=== PATIENT | female | born 1985 | race Caucasian/White ===

== ENCOUNTER → 2016-05-28 | Outpatient (CLI) | payer OTHER ==
[~2016-05-28] MED LIST: ALBU18002 INH; ALBU4TAB10 PO; ATV5X PO; CEPH500C2 PO; CLR10 PO; FEXO1TAB46 PO; FLUO20CA35 PO; FLUO20CA36 PO; FLUT0.15; GABA-112 PO; IBUP-1427 PO; IPRA1AER2 INH; MTR600X PO; MULTTAB58 PO; OXYC-57 PO; PRENTAB26 PO; RANI150T3 PO; SYMIN160 INH; VNTHFA/IN INH; ZOLP10TA6 PO
[2016-05-28 11:39] LABS: GTGD 50 Grams
[2016-05-31 14:53] LABS: AFP CONCENTRATION 32.5 NG/ML; AFP MULTIPLE OF MEDIAN 1.18; AFPTS GESTATIONAL AGE 16.7 WEEKS; AFPTS INSULIN DEP DIABETIC? NO; AFPTS MATERNAL WT 208 LBS; ALPHA-FETOPROTEIN RACE HISPANIC=H; ESTRIOL MULTIPLE OF MEDIAN 1.09; HISTORY OF NTD NO; INHIBIN A 126 PG/ML; INHIBIN A MOM 0.91; REPEAT SAMPLE? NO; hCG MULTIPLE OF MEDIAN 1.25
== END | disposition home or self-care (01) ==
LOC: C.LAB1850 09:29
PROVIDERS: ATTEND Obstetrics & Gynecology
DX: Z34.02 Encounter for supervision of normal first pregnancy, second trimester (principal)

== ENCOUNTER → 2016-06-22 | Outpatient (CLI) | payer OTHER | END | disposition home or self-care (01) | LOC: C.LAB1850 08:59 | PROVIDERS: ATTEND Obstetrics & Gynecology | DX: R89.9 Unspecified abnormal finding in specimens from other organs, systems and tissues (principal) ==

== ENCOUNTER 2016-06-24 13:41 | Emergency (ER) | payer OTHER ==
[~2016-06-24 13:41] MED LIST changes: -ALBU18002 INH; -ALBU4TAB10 PO; -CEPH500C2 PO; -CLR10 PO; -FLUO20CA36 PO; -FLUT0.15; -IBUP-1427 PO; -IPRA1AER2 INH; -MTR600X PO; -MULTTAB58 PO; -OXYC-57 PO; -PRENTAB26 PO; -RANI150T3 PO; -SYMIN160 INH; -VNTHFA/IN INH
[2016-06-24] MEDS ORDERED: IPRA1AER2 INH (13:43)
[2016-06-24 13:49] VITALS: TEMP 36.7; Ht 160 cm
[2016-06-24 14:30] VITALS: O2SAT 97
--- NOTE | 2016-06-24 15:02 | EMERGENCY ROOM VISIT NOTE ---
History Report prepared by Casie: Niels Vance Under the Supervision of: Dr. Nikolay Wyatt M.D. First contact with patient: 14:40 Chief Complaint: CHEST PAIN Stated Complaint: CHEST PAIN,SOB,CLAMMY HANDS,HEAVINESS IN PELVIS History of Present Illness The patient is a 30 year old female who presents to the Emergency Room with complaints of intermittent left sided chest pain that began shortly prior to arrival. The patient describes her pain as "sharp" and rates the pain as a 6/10 in severity. When her chest pain occurs it lasts only a few seconds before spontaneously resolving. The patient also complains of shortness of breath, diaphoresis, and nausea. She does have a history of asthma and has been having some increased difficulty breathing the past week. She does have a rescue inhaler and daily maintenance medication. She also has a history of anxiety and depression and is on medication for these conditions. The patient is currently 21 weeks and notes experiencing some pressure and "heaviness" in her lower abdomen. She has not had any vaginal bleeding or urinary irregularities. The patient denies any personal/significant family history of blood clots, and has not noticed any swelling in her lower extremities. There has been no recent travel. Source of History: patient Onset: Shortly [employer] Position: chest (left) Symptom Intensity: Quality: sharp Associated Symptoms: + SOB, + diaphoresis, + nausea, No urinary symptoms Review of Systems See HPI for pertinent positives & negatives. A total of 10 systems reviewed and were otherwise negative. Past Medical & Surgical Medical Problems: (1) Asthma (2) Depression (3) ANA (generalized anxiety disorder) Family History Cancer Diabetes mellitus Hypertension Social History Smoking Status: Never Smoker Alcohol Use: none Drug Use: none Marital Status: Housing Status: lives with significant other Occupation Status: [employer] student Current/Historical Medications Scheduled Budesonide/Formoterol Fumarate (Symbicort 160/4.5 Inhaler), 1 PUFF INH BID Fluoxetine HCl (Fluoxetine HCl), 60 MG PO DAILY Multiple Vitamin (Multivitamin), 1 TAB PO DAILY Scheduled PRN Ipratropium-Albuterol (Combivent Respimat), 1 PUFF INH QID PRN for Shortness of Breath Allergies Coded Allergies: No Known Allergies (Unverified , 03/04/16) Physical Exam Vital Signs Date Time Temp Pulse Resp B/P Pulse Ox O2 Delivery O2 Flow Rate FiO2 2/12/17 16:47 73 16 116/57 96 06/24/16 14:44 76 06/24/16 14:30 97 Room Air 06/24/16 13:53 98 Room Air 06/24/16 13:49 36.7 82 20 140/62 98 Room Air Physical Exam GENERAL: Patient is in no acute distress. HEENT: No acute trauma, normocephalic atraumatic, mucous membranes moist, no nasal congestion, no scleral icterus. NECK: No stridor, no adenopathy, no meningismus, trachea is midline. LUNGS: Clear to auscultation bilaterally, no wheeze, no rhonchi, breath sounds equal. HEART: Without murmurs gallops or rubs, regular rate and rhythm. CHEST: Non-tender chest wall. ABDOMEN: Gravid uterus. Soft, nontender, bowel sounds positive, no hernias, no peritonitis. EXTREMITIES: No cyanosis or edema, full range of motion of all the joints without pain or difficulty, no signs for acute trauma. NEUROLOGIC: Oriented x 3, no acute motor or sensory deficits, no focal weakness. SKIN: No rash, no jaundice, no diaphoresis. Medical Decision & Procedures ER Provider Diagnostic Interpretation: X ray results and stated below per my interpretation and radiologist interpretation. Other radiology results and stated below per my review and radiologist interpretation: BILATERAL LOWER EXTREMITY VENOUS DOPPLER CLINICAL HISTORY: . Possible clot. Shortness of breath. Chest pain. COMPARISON STUDY: No previous studies for comparison. TECHNIQUE: Sonography of the deep venous system of the bilateral lower extremities was performed. Compression and augmentation were evaluated. FINDINGS: The bilateral common femoral, superficial femoral and popliteal veins were compressible. Augmentation was normal. Flow was shown within the deep calf vessels. IMPRESSION: No evidence of deep venous thrombus within the bilateral lower extremities. Electronically signed by: Pelon Aragon M.D. 06/24/2016 4:18 PM Dictated Date/Time: 06/24/2016 4:18 PM HEART RATE: heart rate was found at 147. URINE DIP: Urine dip shows ketones consistent with dehydration, no infection present. ECG Indication: chest pain Rate (beats per minute): 80 Rhythm: normal sinus Findings: no acute ischemic change, no ectopy ED Course 1444: The patient was evaluated in room C12. A complete history and physical exam was performed. 1629: I reevaluated the patient at this time. I discussed results and discharge instructions.The patient feels much better after the heart rate was found : She verbalized understanding and agreement. The patient is ready for discharge. Medical Decision Differential diagnosis include: musculoskeletal chest pain, aortic dissection, pulmonary embolism, pneumothorax, pneumonia, anxiety. The patient presents with some fleeting, intermittent left-sided chest pain. She is about 21 weeks . EKG shows a normal sinus rhythm, no ischemia. Bilateral lower extremity ultrasound does not show evidence for DVT. The patient has not had any long trip by car or by plane, there has been no leg edema, she has no family history of DVT. The patient has strong heart tones by exam. Urine dip does not show infection. The patient was reassured. She is not currently short of breath, she is not tachycardic. She is not hypoxic. I suspect the pain is musculoskeletal. The patient can return to this ER for worsening symptoms. I do not think further workup in the emergency room is required today. Impression Primary Impression: Left sided chest pain Additional Impression: Scribe Attestation The scribe's documentation has been prepared under my direction and personally reviewed by me in its entirety. I confirm that the note above accurately reflects all work, treatment, procedures, and medical decision making performed by me. Departure Information Dispostion Home / Self-Care Referrals Alex Cohen D.O. (PCP) Forms HOME CARE DOCUMENTATION FORM, IMPORTANT VISIT INFORMATION Patient Instructions My [facility] Additional Instructions testing was all ok today return for worsening symptoms as we discussed may use tylenol for pain as needed Problem Qualifiers Additional Impression: Weeks of gestation: 21 weeks Qualified Codes: Z3A.21 - 21 weeks gestation of
[2016-06-24] MEDS ORDERED: FLUO20CA36 PO (15:07)
[2016-06-24] MEDS ORDERED: SYMIN160 INH (15:54)
--- NOTE | 2016-06-24 16:20 | DIAGNOSTIC IMAGING REPORT ---
BILATERAL LOWER EXTREMITY VENOUS DOPPLER CLINICAL HISTORY: . Possible clot. Shortness of breath. Chest pain. COMPARISON STUDY: No previous studies for comparison. TECHNIQUE: Sonography of the deep venous system of the bilateral lower extremities was performed. Compression and augmentation were evaluated. FINDINGS: The bilateral common femoral, superficial femoral and popliteal veins were compressible. Augmentation was normal. Flow was shown within the deep calf vessels. IMPRESSION: No evidence of deep venous thrombus within the bilateral lower extremities. Electronically signed by: Pelon Aragon M.D. 06/24/2016 4:18 PM Dictated Date/Time: 06/24/2016 4:18 PM
[2016-06-24 16:47] VITALS: BP 116/57; PULSE 73; O2SAT 96
[2016-06-24] MEDS ORDERED: MULTTAB58 PO (17:35)
== END 2016-06-24 16:49 | disposition home or self-care (01) ==
LOC: C.EDB 13:43 → C.EDC 16:49
DX: O99.89 Other specified diseases and conditions complicating pregnancy, childbirth and the puerperium (principal); O99.341 Other mental disorders complicating pregnancy, first trimester; R07.9 Chest pain, unspecified; Z3A.21 21 weeks gestation of pregnancy; J45.909 Unspecified asthma, uncomplicated; F32.9 Major depressive disorder, single episode, unspecified; Z80.9 Family history of malignant neoplasm, unspecified; Z83.3 Family history of diabetes mellitus; Z82.49 Family history of ischemic heart disease and other diseases of the circulatory system

== ENCOUNTER → 2016-06-26 | Outpatient (CLI) | payer OTHER ==
[~2016-06-26] MED LIST changes: +ALBU18002 INH; +ALBU4TAB10 PO; -ATV5X PO; +CEPH500C2 PO; +CLR10 PO; -FEXO1TAB46 PO; -FLUO20CA35 PO; +FLUO20CA36 PO; +FLUT0.15; -GABA-112 PO; +IBUP-1427 PO; +IPRA1AER2 INH; +MTR600X PO; +MULTTAB58 PO; +OXYC-57 PO; +PRENTAB26 PO; +RANI150T3 PO; +SYMIN160 INH; +VNTHFA/IN INH; -ZOLP10TA6 PO
[2016-06-26 17:04] LABS: URINE APPEARANCE CLEAR (CLEAR); URINE BILIRUBIN NEG (NEG); URINE COLOR YELLOW; URINE EPITHELIAL CELL AUTO >30 /lpf (0-5); URINE NITRITE NEG (NEG); URINE PH 6.5 (4.5-7.5); URINE SPECIFIC GRAVITY 1.005 (1.000-1.030); UROBILINOGEN NEG (NEG)
[2016-06-26 17:05] LABS: MANUAL MICROSCOPIC REQUIRED? NO; REVIEW REQ? NO
== END | disposition home or self-care (01) ==
LOC: C.LAB1850 15:05
PROVIDERS: ATTEND Obstetrics & Gynecology
DX: R34 Anuria and oliguria (principal)

== ENCOUNTER → 2016-08-17 | Outpatient (CLI) | payer OTHER ==
[2016-08-17 14:42] LABS: URINE APPEARANCE CLEAR (CLEAR); URINE COLOR DK YELLOW; URINE EPITHELIAL CELL AUTO >30 /lpf (0-5); URINE NITRITE NEG (NEG); URINE PH 6.5 (4.5-7.5); UROBILINOGEN NEG (NEG)
[2016-08-17 14:54] LABS: MANUAL MICROSCOPIC REQUIRED? NO; REVIEW REQ? YES
[2016-08-17 14:56] LABS: URINE BILIRUBIN NEG (NEG)
[2016-08-17 15:39] LABS: URINE MUCUS PRESENT (NONE PRSENT)
== END | disposition home or self-care (01) ==
LOC: C.LAB1850 09:51
PROVIDERS: ATTEND Obstetrics & Gynecology
DX: Z34.03 Encounter for supervision of normal first pregnancy, third trimester (principal); R89.9 Unspecified abnormal finding in specimens from other organs, systems and tissues

== ENCOUNTER → 2016-08-31 | Outpatient (CLI) | payer OTHER ==
[2016-08-31 17:43] LABS: HEMATOCRIT 36.9 % (37-47)
== END | disposition home or self-care (01) ==
LOC: C.LAB1850 16:10
PROVIDERS: ATTEND Obstetrics & Gynecology
DX: Z34.03 Encounter for supervision of normal first pregnancy, third trimester (principal)

== ENCOUNTER → 2016-10-10 | Outpatient (CLI) | payer OTHER | END | disposition home or self-care (01) | LOC: C.LABSPEC 17:49 | PROVIDERS: ATTEND Obstetrics & Gynecology | DX: O24.410 Gestational diabetes mellitus in pregnancy, diet controlled (principal) ==

== ENCOUNTER 2016-11-07 16:22 | Outpatient (CLI) | payer OTHER ==
[~2016-11-07] VITALS: Ht 160 cm; Wt 94.8 kg
[~2016-11-07 16:22] MED LIST changes: -ALBU18002 INH; -ALBU4TAB10 PO; -CEPH500C2 PO; -CLR10 PO; -FLUT0.15; -IBUP-1427 PO; -MTR600X PO; -OXYC-57 PO; -PRENTAB26 PO; -RANI150T3 PO; -VNTHFA/IN INH
[2016-11-07 17:39] VITALS: Ht 160 cm; Wt 94.8 kg
[2016-11-07 17:44] LABS: URINE APPEARANCE CLEAR (CLEAR); URINE BILIRUBIN NEG (NEG); URINE COLOR YELLOW; URINE NITRITE NEG (NEG); UROBILINOGEN NEG (NEG); ZZUR CULT IF INDIC CLEAN CATCH NO
[2016-11-07 17:49] LABS: MANUAL MICROSCOPIC REQUIRED? NO; REVIEW REQ? NO
[2016-11-07] MEDS ORDERED: ALBU4TAB10 PO (19:08)
[2016-11-07] MEDS ORDERED: CLR10 PO (19:08)
[2016-11-07] MEDS ORDERED: FLUT0.15 (19:08)
[2016-11-07] MEDS ORDERED: RANI150T3 PO (19:08)
== END 2016-11-07 18:45 | disposition home or self-care (01) ==
LOC: C.OPB 16:22 → C.LD 16:22 → C.OPB 18:45
PROVIDERS: ATTEND Obstetrics & Gynecology
DX: O12.13 Gestational proteinuria, third trimester (principal); Z3A.40 40 weeks gestation of pregnancy

== ENCOUNTER 2016-11-09 10:05 | Outpatient (CLI) | payer OTHER ==
[~2016-11-09] VITALS: Ht 160 cm; Wt 95.5 kg
[~2016-11-09 10:05] MED LIST changes: +ALBU4TAB10 PO; +CLR10 PO; +FLUT0.15; -IPRA1AER2 INH; +RANI150T3 PO
[2016-11-09] MEDS ORDERED: PRENTAB26 PO (10:28)
[2016-11-09 10:33] LABS: BASO % 0.2 %; BASO ABS # 0.02 K/uL (0-0.2); EOS % 0.7 %; HEMATOCRIT 39.7 % (37-47); IG% 0.3 %; LYMPH % 19.1 %; LYMPH ABS # 1.79 K/uL (1.2-3.4); MEAN CELL VOLUME 86.9 fL (80-100); MEAN CORPUSCULAR HEMOGLOBIN 29.8 pg (25-34); MEAN PLATELET VOLUME 10.5 fL (7.4-10.4); MONO % 7.4 %; NEUT % 72.3 %; PLATELET COUNT 231 K/uL (130-400); RED BLOOD COUNT 4.57 M/uL (4.2-5.4); WHITE BLOOD COUNT 9.36 K/uL (4.8-10.8)
[2016-11-09] MEDS ORDERED: ALBU18002 INH (10:33)
[2016-11-09 10:40] VITALS: Ht 160 cm; Wt 95.5 kg
[2016-11-09 10:41] LABS: COMPLETE YES; MEAN CORPUSCULAR HGB CONC 34.3 g/dl (32-36)
[2016-11-09 10:42] LABS: INR 0.9 (0.9-1.1); PARTIAL THROMBOPLASTIN RATIO 1.1; PROTHROMBIN TIME (PATIENT) 9.7 SECONDS (9.0-12.0)
[2016-11-09] MEDS ORDERED: VNTHFA/IN INH (11:05)
[2016-11-09 11:11] LABS: ALKALINE PHOSPHATASE 173 U/L (45-117); ALT/SGPT 19 U/L (12-78); AST/SGOT 17 U/L (15-37); CREATININE 0.56 mg/dl (0.60-1.20); URIC ACID 4.9 mg/dl (2.6-7.2)
== END 2016-11-09 13:45 | disposition home or self-care (01) ==
LOC: C.LD 10:05 → C.OPB 10:05
PROVIDERS: ATTEND Obstetrics & Gynecology
DX: O99.89 Other specified diseases and conditions complicating pregnancy, childbirth and the puerperium (principal); R03.0 Elevated blood-pressure reading, without diagnosis of hypertension

== ENCOUNTER 2016-11-10 07:46 | Inpatient (IN) | payer OTHER ==
[~2016-11-10] VITALS: Ht 160 cm; Wt 95.0 kg
[~2016-11-10 07:46] MED LIST changes: -ALBU4TAB10 PO; -MULTTAB58 PO; +PRENTAB26 PO; +VNTHFA/IN INH
[2016-11-10 08:32] VITALS: Ht 160 cm; Wt 95.0 kg
[2016-11-10] MEDS ORDERED: LACTATED RINGER'S 1000ML 1,000 ML IV SCH ×2 (08:37→23:38)
[2016-11-10] MEDS ORDERED: LACTATED RINGER'S 1000ML 1,000 ML IV PRN (08:37)
[2016-11-10] MEDS ORDERED: MISOPROSTOL 25 MCG TAB PV ONE (08:45)
[2016-11-10 09:08] LABS: HEMATOCRIT 38.9 % (37-47); MEAN CORPUSCULAR HGB CONC 34.4 g/dl (32-36); MEAN PLATELET VOLUME 10.2 fL (7.4-10.4); PLATELET COUNT 220 K/uL (130-400); RED BLOOD COUNT 4.47 M/uL (4.2-5.4); WHITE BLOOD COUNT 9.53 K/uL (4.8-10.8)
[2016-11-10] MEDS ORDERED: LACTATED RINGER'S 1000ML 500 ML IV PRN ×2 (10:48→18:36)
[2016-11-10] MEDS ORDERED: OXYTOCIN 30 UNITS/500ML NSS IV PRN (11:00)
[2016-11-10] MEDS ORDERED: RANITIDINE HCL 150 MG TAB PO ONE (13:45)
[2016-11-10] MEDS ORDERED: EpHEDrine SULFATE INJ 50 MG/ML AMP ONE ×2 (17:41→22:43)
[2016-11-10] MEDS ORDERED: BUPIVACAINE 0.25% 30 ML VIAL ONE (17:41)
[2016-11-10] MEDS ORDERED: FENTANYL CITRATE INJ 50 MCG/1 ML 2 ML VIAL ONE ×2 (17:41→22:06)
[2016-11-10] MEDS ORDERED: FENTANYL 2MCG/ML ROPIV 1.25MG/ML 100ML BAG EPI ONE (17:41)
[2016-11-10] MEDS ORDERED: NALOXONE HCL INJ 1 MG in SODIUM CHLORIDE 0.9% 1000ML 1,000 ML IV PRN ×4 (18:36)
[2016-11-10] MEDS ORDERED: ONDANSETRON INJ 2 MG/ML 2 ML VIAL IV PRN ×2 (18:45→23:45)
[2016-11-10] MEDS ORDERED: EpHEDrine SULFATE INJ 50 MG/ML AMP IV PRN (18:45)
[2016-11-10] MEDS ORDERED: DiphenhydrAMINE HCL 50 MG/ML VIAL IV PRN (18:45)
[2016-11-10] MEDS ORDERED: PROMETHAZINE HCL INJ 25 MG in SODIUM CHLORIDE 0.9% 50ML 50 ML IV PRN (18:45)
[2016-11-10] MEDS ORDERED: NALOXONE HCL INJ 0.4 MG/1 ML VIAL/CARP IV PRN (18:45)
[2016-11-10] MEDS ORDERED: NALBUPHINE HCL INJ 10 MG/ML AMP IV PRN (18:45)
[2016-11-10] MEDS ORDERED: FENTANYL 2MCG/ML ROPIV 1.25MG/ML 100ML BAG EPI PRN (18:45)
[2016-11-10] MEDS ORDERED: TERBUTALINE SULFATE 1 MG/ML VIAL SQ ONE (21:52)
[2016-11-10] MEDS ORDERED: PROPOFOL IV EMULSION 10 MG/ML 20 ML VIAL IV ONE (22:06)
[2016-11-10] MEDS ORDERED: SUCCINYLCHOLINE CHLORIDE 20 MG/ML 10 ML VIAL IV ONE (22:06)
[2016-11-10] MEDS ORDERED: OXYTOCIN INJ 10 UNITS/ML VIAL ONE (22:40)
[2016-11-10] MEDS ORDERED: LIDOCAINE/EPINEPHRINE 2% 1:200,000 20 ML SDV ONE (22:41)
[2016-11-10] MEDS ORDERED: ONDANSETRON INJ 2 MG/ML 2 ML VIAL ONE (22:42)
[2016-11-10] MEDS ORDERED: DEXAMETHASONE SOD INJ 4 MG/ML VIAL ONE (22:43)
[2016-11-10] MEDS ORDERED: MoRPHine SULFATE PF 1 MG/ML 10 ML AMP/VIAL ONE (22:45)
[2016-11-10] MEDS ORDERED: PHENYLEPHRINE HCL INJ 10 MG/ML VIAL ONE (23:00)
[2016-11-10] MEDS ORDERED: NO NARCOTICS OR SEDATIVES SCH (23:15)
[2016-11-10] MEDS ORDERED: MoRPHine SULFATE PF 1 MG/ML 10 ML AMP/VIAL EPI PRN (23:15)
[2016-11-10] MEDS ORDERED: CONTINUE MEDICATION ONE (23:15)
--- NOTE | 2016-11-10 23:20 | Anesthesia Procedure Note ---
Anesthesia Epidural Removal Nt Date & Time Nov 10, 2016 at 23:19 Vital Signs Pain Intensity: 0.0 Notes Mental Status: alert / awake / arousable, participated in evaluation Nausea / Vomiting: adequately controlled Pain: adequately controlled Airway Patency, RR, SpO2: stable & adequate BP & HR: stable & adequate Hydration State: stable & adequate Neuraxial Anesthesia: was administered Anesthetic Complications: no major complications apparent, pt satisfied with anesthetic care Epidural: removed without complications, with tip intact
--- NOTE | 2016-11-10 23:20 | Anesthesiology Progress Note ---
Anesthesia Post Op Note Date & Time Nov 10, 2016 at 23:20 Vital Signs Pain Intensity: 0.0 Notes Mental Status: alert / awake / arousable, participated in evaluation Pt Amnestic to Procedure: No Nausea / Vomiting: adequately controlled Pain: adequately controlled Airway Patency, RR, SpO2: stable & adequate BP & HR: stable & adequate Hydration State: stable & adequate Neuraxial Anesthesia: was administered, sensory block is resolving Anesthetic Complications: no major complications apparent
--- NOTE | 2016-11-10 23:38 | [facility] Operative Report ---
Operative Report Operative Date Nov 10, 2016. Pre-Operative Diagnosis 40+ week intrauterine , thin meconium, gestational hypertension, induction of labor, nonreassuring heart tones Post-Operative Diagnosis same, short umbilical cord Procedure(s) Performed Primary low transverse section Surgeon Samuel Technical Account Representative Surgeon(s) Jonathan DICKSON Estimated Blood Loss 800 Findings Viable female Apgars 5 and 9 weight 6 lbs. 1 oz. Normal uterus tubes and ovaries bilaterally. Evidence of short cord. Fluids 1500 Specimens #1 placenta #2 cord blood #3 cord gases Drains Salcedo catheter Anesthesia epidural with Duramorph Complication(s) None Disposition Recovery Room / PACU Indications 30-year-old 1 para 0 who presented for planned induction on 11/10/2016. She did not tolerate prior placement of Salcedo bulb for cervical ripening. She ended up developing a spontaneous labor pattern that progressed her cervix somewhat but the contractions remained irregular therefore Pitocin was ultimately begun. She had a category 2 tracing with intermittent variable decelerations. At the time of my exam I felt that she was more like 3 cm and thick. We attempted to place an IUPC in order to better ascertain the strength of the contractions and decide how to increase the Pitocin. An amnioinfusion was begun due to the variable decelerations with every contraction. Shortly after placing the IUPC the patient sustained hypertonus and the Pitocin was discontinued after 3 contractions were noted [id number] with heart tones in the 60s to 80s. The patient was moved from lateral positions and IV bolus was begun. O2 was applied and knee-chest positioning was attempted. heart tones remained bradycardic and the patient had been reexamined during this period and was unchanged as far as her cervical progress. Approximately 6 minutes into the bradycardia, 0.25 mg of subcutaneous terbutaline was also administered. The patient's abdomen was difficult to palpate in regards to presence or absence of contractions although the IUPC seemed to indicate that she was hypertonic. The IUPC was removed. The external heart rate monitor was compared to the scalp lead. heart tones were considered to be accurate. The patient and partner were counseled about the need to proceed with stat section. Due to the operating room not being ready it was decided to proceed to the main operating rooms. Once in the operating room the patient was positioned on the OR table and ultimately the heart tones were auscultated to be approximately 120 beats per minute. The epidural had been bolused already at this time and it was determined that given the current heart tones to try to proceed using regional anesthesia. Description of Procedure The patient was taken to the operating room and identified. heart tones were determined. She was placed in the supine position with a leftward tilt and prepped and draped in the usual sterile fashion. A Salcedo catheter had already been placed under sterile conditions. The knife was used to create a Pfannenstiel skin incision that was carried down to the underlying layer of fascia. The fascia was nicked in the midline and was extended laterally using Palomo scissors. The fascia was elevated and transected away from the underlying rectus muscles both superiorly and inferiorly both sharply and bluntly. The rectus muscles were bluntly in the midline and the peritoneal cavity was bluntly entered into. The opening was stretched. The bladder blade was placed. The vesicouterine peritoneum was elevated and entered into sharply and extended laterally and the bladder flap was created digitally. The bladder blade was replaced. The knife was used to create a hysterotomy that was stretched. The knitting machine operator helper hand was placed through the hysterotomy and the head was elevated and flexed and with fundal pressure delivered. Shoulders and body were delivered rapidly with further fundal pressure and the nose and mouth were bulb suctioned. The cord was clamped and cut and the was handed off to the awaiting editor greeting card. Cord blood and cord gases were obtained. The placenta was manually expressed. The uterus was exteriorized and cleared of all clots and debris. The hysterotomy was closed in a running inter locking fashion followed by a second imbricating layer using 0 Vicryl. Additional bleeding sites at the hysterotomy were stitched for excellent hemostasis using 2-0 Vicryl. The pelvis was irrigated. The uterus returned to the abdomen. The gutters were cleared of all clots and debris. The hysterotomy was reinspected and noted to be hemostatic. The fascia was then closed in a running fashion using 0 Vicryl. The subcutaneous fat was copiously irrigated. The subcutaneous tissue was reapproximated using 2-0 chromic. The skin was then closed in a subcuticular fashion using 4-0 Vicryl. All sponge lap and needle counts were correct 2. The patient was returned to the recovery room in stable condition. I attest to the content of the Intraoperative Record and any orders documented therein. Any exceptions are noted below.
[2016-11-10] MEDS ORDERED: BENZOCAINE 20% AER SPR 82.5 GM CAN EXT PRN (23:45)
[2016-11-10] MEDS ORDERED: DIPHTHERIA/TETANUS/PERTUSSIS 0.5 ML SYR/VIAL IM. ONE (23:45)
[2016-11-10] MEDS ORDERED: LANOLIN OINT EXT PRN ×2 (23:45)
[2016-11-10] MEDS ORDERED: SUPERCREAM 0.870 % 15GM JAR EXT PRN (23:45)
[2016-11-10] MEDS ORDERED: HYDROCORTISONE ACETATE 25 MG SUPP PR PRN (23:45)
[2016-11-10] MEDS: OXYTOCIN INJ 20 UNITS in LACTATED RINGER'S 1000ML 1,000 ML IV SCH (23:58)
[2016-11-11] VITALS (22 sets, daily range): BP systolic 101–127; BP diastolic 63–73; PULSE 71–82; TEMP 36.7–37; O2SAT 95–100
[2016-11-11] MEDS: ALBUTEROL HFA 8 GM INHALER INH SCH
[2016-11-11] MEDS: KETOROLAC TROMETHAMINE 30 MG/ML VIAL IV. PRN ×2 (02:07→13:18)
[2016-11-11 06:51] LABS: HEMATOCRIT 36.7 % (37-47); MEAN CORPUSCULAR HEMOGLOBIN 29.1 pg (25-34); MEAN CORPUSCULAR HGB CONC 33.5 g/dl (32-36); MEAN PLATELET VOLUME 10.9 fL (7.4-10.4); PLATELET COUNT 206 K/uL (130-400); RED BLOOD COUNT 4.22 M/uL (4.2-5.4)
[2016-11-11 06:53] LABS: BASO ABS # 0.01 K/uL (0-0.2); COMPLETE YES; IG% 0.3 %; LYMPH % 2.9 %; MONO % 2.1 %; NEUT % 94.7 %
[2016-11-11] MEDS: RANITIDINE HCL 150 MG TAB PO SCH (07:16)
[2016-11-11] MEDS: LORATADINE 10 MG TAB PO SCH (07:16)
[2016-11-11] MEDS: DOCUSATE SODIUM 100 MG CAP PO SCH ×2 (07:17→20:23)
[2016-11-11] MEDS: SIMETHICONE 80 MG CHEW PO SCH ×4 (07:17→20:23)
[2016-11-11] MEDS: BUDESONIDE/FORMOTEROL FUMARATE 160/4.5 60 PUFFS/INHALER INH SCH ×2 (07:19→20:23)
[2016-11-11] MEDS: FLUOXETINE HCL 20 MG CAP PO SCH (07:19)
--- NOTE | 2016-11-11 07:33 | Progress Note ---
Subjective Nov 11, 2016. Subjective conversation w/ patient, physical exam Ambulation: limited ambulation (in bed, with duramorph orders) Passing Gas: No Lochia: Moderate Feeding Type: Breast Feeding Pain: slight pain and took pain meds and feeling better Objective Vital Signs Date Time Temp Pulse Resp B/P (MAP) Pulse Ox O2 Delivery O2 Flow Rate FiO2 11/11/16 06:40 36.9 71 18 114/71 (85) 96 Room Air 11/11/16 06:40 18 96 11/11/16 05:30 20 96 11/11/16 04:30 18 95 11/11/16 03:30 18 95 11/11/16 02:30 95 Room Air 11/11/16 02:30 18 95 11/11/16 02:30 36.9 18 116/73 (87) 95 Room Air Physical Exam General Appearance: WELL-APPEARING, WD/WN, NO APPARENT DISTRESS Respiratory/Chest: lungs clear Cardiovascular: regular rate, rhythm Abdomen: non tender, soft Fundus: Firm, Relation to Umbilicus (2 down) Incision Description: Clean, Dry & Intact (dressing in place) Extremities: non-tender Laboratory Results Last 24 Hours Test 11/10/16 08:59 11/11/16 06:08 White Blood Count 9.53 K/uL 20.60 K/uL Red Blood Count 4.47 M/uL 4.22 M/uL Hemoglobin 13.4 g/dL 12.3 g/dL Hematocrit 38.9 % 36.7 % Mean Corpuscular Volume 87.0 fL 87.0 fL Mean Corpuscular Hemoglobin 30.0 pg 29.1 pg Mean Corpuscular Hemoglobin Concent 34.4 g/dl 33.5 g/dl RDW Standard Deviation 44.9 fL 44.2 fL RDW Coefficient of Variation 14.0 % 13.9 % Platelet Count 220 K/uL 206 K/uL Mean Platelet Volume 10.2 fL 10.9 fL Neutrophils (%) (Auto) 94.7 % Lymphocytes (%) (Auto) 2.9 % Monocytes (%) (Auto) 2.1 % Eosinophils (%) (Auto) 0.0 % Basophils (%) (Auto) 0.0 % Neutrophils # (Auto) 19.50 K/uL Lymphocytes # (Auto) 0.60 K/uL Monocytes # (Auto) 0.43 K/uL Eosinophils # (Auto) 0.00 K/uL Basophils # (Auto) 0.01 K/uL Immature Granulocyte % (Auto) 0.3 % Immature Granulocyte # (Auto) 0.06 K/uL Assessment and Plan Problem List Medical Problems: (1) Dehydration Status: Acute (2) Generalized weakness Status: Acute (3) Left sided chest pain Status: Acute (4) Status: Acute Post-, Post-Op Day#: 1 Continue Routine Care: stable, routine care. explained circumstances of c/s and thoughts regarding etiologies of deep variables and ultimate bradycardia. will advance diet when able, po pain meds when able, andrea not coming out until later this evening.
[2016-11-11] MEDS: OXYTOCIN INJ 20 UNITS in LACTATED RINGER'S 1000ML 1,000 ML IV SCH ×2 (08:06→16:52)
[2016-11-11] MEDS ORDERED: OXYCODONE/ACETAMINOPHEN 5-325 TAB PO PRN (17:45)
[2016-11-11] MEDS ORDERED: KETOROLAC TROMETHAMINE 30 MG/ML VIAL IV. PRN (17:45)
[2016-11-11] MEDS ORDERED: DiphenhydrAMINE HCL 50 MG/ML VIAL IV PRN (17:45)
[2016-11-11] MEDS ORDERED: ZOLPIDEM TARTRATE 5 MG TAB PO PRN (17:45)
[2016-11-11] MEDS ORDERED: DC INTRASPINAL MORPHINE ONE (17:45)
[2016-11-11] MEDS: FLUTICASONE PROPIONATE NA SPR 16 GM BTL NAE SCH (22:10)
[2016-11-12] MEDS: ALBUTEROL HFA 8 GM INHALER INH SCH ×3 (00:32→12:00)
[2016-11-12 01:00] VITALS: BP 113/75; PULSE 82; TEMP 36.8; O2SAT 100
[2016-11-12] MEDS: OXYCODONE/ACETAMINOPHEN 5-325 TAB PO PRN ×4 (01:54→16:42)
[2016-11-12] MEDS: IBUPROFEN 600 MG TAB PO PRN ×4 (01:54→16:41)
[2016-11-12] MEDS ORDERED: TERBUTALINE SULFATE 1 MG/ML VIAL ONE (03:07)
[2016-11-12 06:50] LABS: HEMATOCRIT 33.1 % (37-47)
--- NOTE | 2016-11-12 07:18 | Progress Note ---
Subjective Nov 12, 2016. Subjective conversation w/ patient, physical exam Ambulation: ambulating normally Voiding: no voiding problems Passing Gas: Yes Diet Tolerance: Regular Diet Lochia: Small Feeding Type: Breast Feeding Pain: pain meds helping Objective Vital Signs Date Time Temp Pulse Resp B/P (MAP) Pulse Ox O2 Delivery O2 Flow Rate FiO2 11/12/16 01:00 36.8 82 20 113/75 11/12/16 01:00 100 Room Air 11/11/16 20:30 20 100 11/11/16 20:20 36.9 82 20 112/73 11/11/16 19:30 18 100 11/11/16 18:30 18 98 11/11/16 17:30 18 98 11/11/16 16:30 20 97 11/11/16 15:53 37.0 77 20 106/63 (77) 98 Room Air 11/11/16 15:30 18 97 11/11/16 14:30 18 98 11/11/16 13:30 18 98 11/11/16 12:30 20 97 11/11/16 11:30 18 97 11/11/16 11:30 36.9 76 18 101/65 (77) 97 Room Air 11/11/16 10:30 18 96 11/11/16 09:30 18 96 11/11/16 08:30 18 96 11/11/16 07:35 36.7 71 18 127/73 (91) 96 Room Air 11/11/16 07:30 Room Air 11/11/16 07:30 20 96 Physical Exam General Appearance: WELL-APPEARING, WD/WN, NO APPARENT DISTRESS Respiratory/Chest: lungs clear Cardiovascular: regular rate, rhythm Abdomen: non tender, soft Fundus: Firm, Relation to Umbilicus (2 down) Incision Description: Clean, Dry & Intact Extremities: non-tender Laboratory Results Last 24 Hours Test 11/12/16 06:10 Hemoglobin 10.9 g/dL Hematocrit 33.1 % Assessment and Plan Problem List Medical Problems: (1) Dehydration Status: Acute (2) Generalized weakness Status: Acute (3) Left sided chest pain Status: Acute (4) Status: Acute Post-, Post-Op Day#: 2 Continue Routine Care: stable, doing well. cont with ambulation, po pain meds. .
[2016-11-12 07:45] VITALS: BP 110/71; PULSE 90; TEMP 36.8
[2016-11-12] MEDS: FLUOXETINE HCL 20 MG CAP PO SCH (08:00)
[2016-11-12] MEDS: BUDESONIDE/FORMOTEROL FUMARATE 160/4.5 60 PUFFS/INHALER INH SCH ×2 (08:05→20:29)
[2016-11-12] MEDS: SIMETHICONE 80 MG CHEW PO SCH ×4 (08:06→20:28)
[2016-11-12] MEDS: LORATADINE 10 MG TAB PO SCH (08:06)
[2016-11-12] MEDS: RANITIDINE HCL 150 MG TAB PO SCH (08:07)
[2016-11-12 08:12] VITALS: O2SAT 100
[2016-11-12] MEDS: DOCUSATE SODIUM 100 MG CAP PO SCH ×2 (10:09→20:28)
[2016-11-12 16:30] VITALS: BP 116/79; PULSE 78; TEMP 37; O2SAT 100; O2SAT 97
[2016-11-12] MEDS: FLUTICASONE PROPIONATE NA SPR 16 GM BTL NAE SCH (22:15)
[2016-11-13 00:10] VITALS: BP 118/76; PULSE 87; TEMP 36.9; O2SAT 98
[2016-11-13] MEDS: IBUPROFEN 600 MG TAB PO PRN ×2 (03:10→11:59)
[2016-11-13] MEDS: OXYCODONE/ACETAMINOPHEN 5-325 TAB PO PRN ×2 (03:11→11:59)
[2016-11-13] MEDS: ALBUTEROL HFA 8 GM INHALER INH SCH ×3 (07:02→11:56)
--- NOTE | 2016-11-13 07:10 | Progress Note ---
Subjective Nov 13, 2016. Subjective conversation w/ patient, physical exam Ambulation: ambulating normally Voiding: no voiding problems Passing Gas: Yes Diet Tolerance: Regular Diet Lochia: Moderate Feeding Type: Breast Feeding Review of Systems Female : No see HPI, No dysuria, No urinary frequency, No hematuria, No incontinence, No abnormal vaginal bleeding, No vaginal discharge, No problem reported Objective Vital Signs Date Time Temp Pulse Resp B/P (MAP) Pulse Ox O2 Delivery O2 Flow Rate FiO2 11/13/16 00:10 Room Air 11/13/16 00:10 36.9 87 18 118/76 (90) 98 Room Air 11/12/16 16:30 100 Room Air 11/12/16 16:30 37.0 78 18 116/79 (91) 97 Room Air 11/12/16 08:12 100 Room Air 11/12/16 07:45 36.8 90 16 110/71 (84) Room Air Physical Exam General Appearance: WELL-APPEARING, NO APPARENT DISTRESS Abdomen: soft Fundus: Firm, Non-Tender, Relation to Umbilicus (2 below U) Incision Description: Clean, Dry & Intact Extremities: no calf tenderness Assessment and Plan Problem List Medical Problems: (1) Dehydration Status: Acute (2) Generalized weakness Status: Acute (3) Left sided chest pain Status: Acute (4) Status: Acute Post-, Post-Op Day#: 3 Continue Routine Care: stable post-op & course discharge to home follow up in 6 weeks
[2016-11-13 07:37] VITALS: BP 125/77; PULSE 86; TEMP 37; O2SAT 96
--- NOTE | 2016-11-13 07:41 | Discharge Instructions ---
Discharge Instructions Date of Service Nov 13, 2016. Admission Reason for Admission: Induction Discharge Discharge Diagnosis / Problem: recovery from Discharge Goals Goal(s): Routine recovery after Activity Recommendations Activity Limitations: per Instructions/Follow-up section . Instructions / Follow-Up Instructions / Follow-Up ACTIVITY RECOMMENDATIONS: * Gradual return to full activity over the next 2-3 weeks. * No lifting - nothing heavier than baby over the next 2-3 weeks. * Do not engage in vigorous exercise, sexual activity or sports until cleared by your physician. * Do not drive or operate any motorized equipment until cleared by your physician. * You may shower/bathe daily. MEDICATIONS: For discomfort or pain, you may use Acetaminophen (Tylenol), Ibuprofen (Advil), or Naproxen (Aleve) following the package directions. For constipation you may use Colace following the package directions. BREAST CARE: If you are not breast feeding: * Wear a supportive bra 24 hours a day for one to two weeks. * Avoid stimulating your breasts and nipples as much as possible during the first few weeks after delivery. * When taking a shower, have the warm water hit your back, not breasts. * When your breasts feel full, apply ice packs. Usually three to four times a day helps ease the discomfort. * Take a mild pain medication (Tylenol / Motrin) when you are uncomfortable. If breast feeding: * Use breast milk to lubricate nipples. Lansinoh cream may be used for sore nipples. You do not need to remove cream prior to breast feeding. If using a different brand of cream, check the label for directions regarding removal of cream prior to nursing. * Wear a supportive bra. * If having problems with breasts or breast feeding, call a community resource consultant or your health care provider. SPECIAL CARE INSTRUCTIONS: When you are discharged from the hospital, it is important for you to follow the instructions listed below: * During the first week at home, you should be able to care for yourself and your baby. In addition, the usual light household activities are encouraged. * Limit your activities to the way you feel. Do not try to clean the house or move furniture. Be sensible. * If you actively engage in sports and have done so up until the time of your delivery, you may resume these activities as soon as you feel able. This may take up to one month or even longer. Use good judgment. * Continue to take your vitamins for at least six weeks after the of your baby. * Your diet need not be limited unless you were on a special diet before your delivery. Breast-feeding mothers need around 2500 calories per day and at least 64-80 ounces of fluid per day (8 to 10 glasses). * You should eat foods from the four major food groups. Crash diets or fad diets are to be avoided. Eating lean meats, fresh fruits and vegetables, low-fat dairy products, high fiber foods and a regular exercise program, will help you get back to your pre- weight without putting your health at risk. * Constipation is sometimes a problem after delivery. Take a mild laxative as needed. If breast feeding, Milk of Magnesia is acceptable to use. You may use a suppository or Fleets enema. * A daily shower or tub bath is suggested. Wash incision daily with warm soapy water and pat dry. It doesn't need to be covered unless drainage is present. * A bloody vaginal discharge will usually continue until around four weeks . A small amount of bleeding may continue for as long as six weeks. Vaginal discharge changes from the bright red bleeding after delivery to pink then brownish and finally yellowish-pink before becoming white and disappearing. * Bleeding may increase with activity. Your first period may come in 4-8 weeks. If you are breast feeding, your period may be delayed even longer. * Axtell (sex) can begin whenever both you and your partner feel comfortable and do not have any form of genital infection. It is recommended that you wait at least six weeks for internal and external healing to occur. If you have questions, please talk to your health care practitioner. A condom should be used to prevent infection and . * Foreplay, gentle intercourse and lubrication is very important the first several times to prevent pain. A water-based lubricant such as K-Y jelly or Astroglide may be used. * If you have RH negative blood and your baby is RH positive, you will receive RHOGAM by injection prior to discharge. The nurse will give you a card to keep with you that has the date and place that you received RHOGAM after delivery. * During your care, you had a Rubella screen done to check for the presence of rubella antibodies in your blood. If your test was negative, you will receive a Rubella vaccine prior to discharge. This vaccine may cause a fever, soreness at the injection site and flu-like symptoms. If these symptoms persist, notify your health care practitioner. is not advised for one month after a Rubella vaccine. * Verbalizes understanding of car seat law as reviewed with patient nursing. * Car Seat hand-out given and reviewed with patient by nursing. * Shaken baby information reviewed with patient by nursing. Call you doctor if: * Heavy bleeding (saturating several pads an hour) or passing clots the size of your fist. * A fever >101 degrees F (38.3 degrees C) on two occasions four hours apart and /or chills. * Unusual pain in the pelvic or vaginal areas. * Call the doctor for any increased redness, drainage or swelling around the incision and any pain unrelieved by prescribed pain medication. * "Baby Blues" lasting longer than two weeks. If you have any questions or concerns, call your health care practitioner at . FOLLOW UP VISIT: * Please call the office at to schedule a 6 week examination. It is important you keep this appointment. It is important for you to make arrangements for either yearly or twice yearly check-ups thereafter. Current Hospital Diet Patient's current hospital diet: Regular OB Diet Discharge Diet Recommended Diet: Regular OB Diet Procedures Procedures Performed: Primary casearean section with the of live female child at 2230; short cord was noted upon delivery. Pending Studies Studies pending at discharge: no Medical Emergencies . Who to Call and When: Medical Emergencies: If at any time you feel your situation is an emergency, please call [phone] immediately. . Non-Emergent Contact Non-Emergency issues call your: Design Specialist . . "Provider Documentation" section prepared by Marilyn Hanks. . VTE Core Measure Inpt VTE Proph given/why not?: Treatment not indicated
[2016-11-13] MEDS ORDERED: OXYC-57 PO (07:42)
[2016-11-13] MEDS ORDERED: MTR600X PO (07:42)
[2016-11-13] MEDS: BUDESONIDE/FORMOTEROL FUMARATE 160/4.5 60 PUFFS/INHALER INH SCH (07:59)
[2016-11-13] MEDS: RANITIDINE HCL 150 MG TAB PO SCH (07:59)
[2016-11-13] MEDS: DOCUSATE SODIUM 100 MG CAP PO SCH (07:59)
[2016-11-13] MEDS: LORATADINE 10 MG TAB PO SCH (07:59)
[2016-11-13] MEDS: SIMETHICONE 80 MG CHEW PO SCH ×2 (07:59→11:57)
[2016-11-13] MEDS: FLUOXETINE HCL 20 MG CAP PO SCH (08:00)
[2016-11-13 12:55] VITALS: BP_DIAS 77; PULSE 86; TEMP 37
--- NOTE | 2016-11-15 16:23 | Discharge Summary ---
Discharge Summary Date of Service Nov 10, 2016. Date of discharge November 13, 2016 Discharge Summary Admission diagnoses: 1. Postdates 2. Gestational Hypertension 3. Induction of Labor 4. Thin meconium 5. Non reassuring heart tones. Discharge diagnoses: same, short umbilical cord Procedures: Primary Low Transverse Section Brief History and Hospital Course: 30yo at 40+wks induced for gestational hypertension. She did not tolerate andrea bulb and therefore was brought in for pitocin induction. See the operative note for more details. She underwent above stated procedure due to non reassuring heart tones. Her estimated blood loss was 800cc. Her post op hemoglobin was 10.9. On her postoperative day #3 she was stable for discharge to home. She was tolerating a regular diet, voiding without difficulty and ambulating without difficulty. She was given discharge instructions and pain medicine prescriptions upon her discharge. She was to followup in office for 6 week checkup and was to call to schedule this appointment.
== END 2016-11-13 13:00 | disposition home or self-care (01) | DRG 766 ==
LOC: C.LD 07:46 → C.OBG 11-11 02:25
PROVIDERS: ADMIT Obstetrics & Gynecology; ATTEND Obstetrics & Gynecology
PROC: 10907ZC Drainage of Amniotic Fluid, Therapeutic from Products of Conception, Via Natural or Artificial Opening (ICD-10-PCS; principal; 2016-11-10 23:13)
PROC: 10H07YZ Insertion of Other Device into Products of Conception, Via Natural or Artificial Opening (ICD-10-PCS; principal; 2016-11-10 23:13)
PROC: 0U7C7ZZ Dilation of Cervix, Via Natural or Artificial Opening (ICD-10-PCS; principal; 2016-11-10 23:13)
PROC: 3E0P7GC Introduction of Other Therapeutic Substance into Female Reproductive, Via Natural or Artificial Opening (ICD-10-PCS; principal; 2016-11-10 23:13)
PROC: 10D00Z1 Extraction of Products of Conception, Low, Open Approach (ICD-10-PCS; principal; 2016-11-10 23:13)
DX: O13.4 Gestational [pregnancy-induced] hypertension without significant proteinuria, complicating childbirth (principal); Z37.0 Single live birth; O77.0 Labor and delivery complicated by meconium in amniotic fluid; O24.429 Gestational diabetes mellitus in childbirth, unspecified control; O48.0 Post-term pregnancy; O76 Abnormality in fetal heart rate and rhythm complicating labor and delivery; O69.3XX0 Labor and delivery complicated by short cord, not applicable or unspecified; O61.0 Failed medical induction of labor; O99.52 Diseases of the respiratory system complicating childbirth; J45.909 Unspecified asthma, uncomplicated; O99.344 Other mental disorders complicating childbirth; F41.9 Anxiety disorder, unspecified; F32.9 Major depressive disorder, single episode, unspecified; O99.62 Diseases of the digestive system complicating childbirth; K21.9 Gastro-esophageal reflux disease without esophagitis; O99.214 Obesity complicating childbirth; E66.9 Obesity, unspecified; Z68.37 Body mass index [BMI] 37.0-37.9, adult; Z79.899 Other long term (current) drug therapy; Z79.51 Long term (current) use of inhaled steroids; Z3A.40 40 weeks gestation of pregnancy

== ENCOUNTER 2016-11-15 00:38 | Emergency (ER) | payer OTHER ==
[~2016-11-15] VITALS: Ht 160 cm; Wt 91.9 kg
[~2016-11-15 00:38] MED LIST changes: +MTR600X PO; +OXYC-57 PO
[2016-11-15 00:42] VITALS: TEMP 36.8; Ht 160 cm; Wt 91.9 kg
[2016-11-15] MEDS ORDERED: IBUP-1427 PO (01:14)
[2016-11-15] MEDS ORDERED: OXYC-57 PO (01:14)
[2016-11-15 01:26] LABS: BASO % 0.1 %; BASO ABS # 0.01 K/uL (0-0.2); COMPLETE YES; EOS % 1.7 %; HEMATOCRIT 34.1 % (37-47); IG% 0.4 %; LYMPH % 18.2 %; LYMPH ABS # 2.08 K/uL (1.2-3.4); MEAN CORPUSCULAR HEMOGLOBIN 29.3 pg (25-34); MEAN CORPUSCULAR HGB CONC 33.7 g/dl (32-36); MONO % 6.2 %; NEUT % 73.4 %; PLATELET COUNT 310 K/uL (130-400); RED BLOOD COUNT 3.92 M/uL (4.2-5.4); WHITE BLOOD COUNT 11.41 K/uL (4.8-10.8)
[2016-11-15 01:43] LABS: INR 0.9 (0.9-1.1); PARTIAL THROMBOPLASTIN RATIO 1.1; PROTHROMBIN TIME (PATIENT) 9.7 SECONDS (9.0-12.0)
[2016-11-15 01:46] LABS: BLOOD UREA NITROGEN 15 mg/dl (7-18); BUN/CREATININE RATIO 31.2 (10-20); CALCIUM 8.5 mg/dl (8.5-10.1); CARBON DIOXIDE 24 mmol/L (21-32); CHLORIDE 108 mmol/L (98-107); CREATININE 0.47 mg/dl (0.60-1.20); GLUCOSE 97 mg/dl (70-99); POTASSIUM 3.5 mmol/L (3.5-5.1); SODIUM 141 mmol/L (136-145)
[2016-11-15] MEDS ORDERED: OPTIRAY 320 IV PRN (02:00)
--- NOTE | 2016-11-15 03:19 | EMERGENCY ROOM VISIT NOTE ---
History First contact with patient: 00:45 Chief Complaint: SHORTNESS OF BREATH Stated Complaint: SHORTNESS OF BREATH,PAIN IN ARM Nursing Triage Summary: Pt had 11/10/16. Today noted left arm pain and SOB History of Present Illness The patient is a 31 year old female who presents to the Emergency Room with complaints of shortness of breath. The patient had a 4 days ago. She states she was discharged a few days ago. She noticed soreness in her left arm today. She reports a cramping sensation in the posterior aspect of the forearm. She has also had mild shortness of breath which has been constant. She has a history of asthma but states she has had no relief with her inhalers. She states that she was told to return for any symptoms concerning for a DVT. She called her [facility] and they sent her here. She rates her discomfort a 4/ 10. She denies any history of clots. She is not a smoker. She denies any chest pain or fevers. Review of Systems A complete 10 point review of systems was reviewed with the patient with pertinent positives and negatives as per history of present illness. All else were negative. Past Medical/Surgical History Medical Problems: (1) Asthma (2) Asthma (3) Chest pain (4) Depression (5) Diarrhea (6) Dysfunctional uterine bleeding (7) Elevated blood pressure affecting in third trimester, antepartum (8) ANA (generalized anxiety disorder) (9) Left leg numbness (10) Left leg numbness (11) Left leg numbness (12) Post term over 40 weeks (13) Proteinuria affecting in third trimester (14) Supervision of normal intrauterine in primigravida Family History Cancer Diabetes mellitus Hypertension Social History Smoking Status: Never Smoker Alcohol Use: none Drug Use: none Marital Status: Housing Status: lives with significant other Occupation Status: [employer] student Current/Historical Medications Scheduled Budesonide/Formoterol Fumarate (Symbicort 160/4.5 Inhaler), 2 PUFF INH BID Fluoxetine HCl (Fluoxetine HCl), 60 MG PO DAILY Fluticasone Propionate (Nasal) (Flonase Allergy Relief), 2 SPRAYS NA HS Loratadine (Claritin), 10 MG PO DAILY Multivit/Min/Iron/Fol Ac/Pren ( Vitamin), 1 TAB PO DAILY Scheduled PRN Albuterol Hfa (Ventolin Hfa), 2-4 PUFFS INH Q6H PRN for Shortness of Breath Ibuprofen Tab (Motrin), 600 MG PO Q4H PRN for Pain Oxycodone/Acetaminophen 5MG/325MG (Percocet 5MG/325MG), 2 TABLETS PO Q4H PRN for Pain Allergies Coded Allergies: Animal Dander (Verified Allergy, Intermediate, itchy watery eyes, 11/15/16) Peanut (Verified Allergy, Mild, SHORTNESS OF BREATH, 11/15/16) Pt reports that she continues to eat peanut butter Dust (Verified Allergy, Unknown, SHORTNESS OF BREATH, 11/15/16) POLLEN (Verified Allergy, Unknown, SHORTNESS OF BREATH, 11/15/16) Physical Exam Vital Signs Date Time Temp Pulse Resp B/P (MAP) Pulse Ox O2 Delivery O2 Flow Rate FiO2 11/15/16 03:50 84 18 127/80 96 11/15/16 02:05 80 16 118/80 97 Room Air 11/15/16 01:13 96 Room Air 11/15/16 00:42 36.8 90 21 112/68 96 Room Air Physical Exam VITALS: Vitals are noted on the nurse's note and reviewed by myself. Vital signs stable. GENERAL: This is a 31-year-old female, in no acute distress, nondiaphoretic, well-developed well-nourished. HEENT: Normocephalic. PERRLA. EOMI. Nares patent. Mucous membranes moist. Neck is supple without nuchal rigidity. HEART: Regular rate and rhythm without murmurs gallops or rubs. LUNGS: Clear to auscultation bilaterally without wheezes, rales or rhonchi. No retractions or accessory muscle use. ABDOMEN: There is a well-healing surgical incision across the lower abdomen at midline. No tenderness to palpation. NEURO: Patient was alert and oriented to person place and time. Medical Decision & Procedures ER Provider Diagnostic Interpretation: CHEST X-RAY: No acute cardiopulmonary findings. CT CHEST WITH CONTRAST: Motion degraded. No evidence of pulmonary embolism to the level of the segmental arteries. No aortic aneurysm. No pleural effusion. Mild atelectasis. US VENOUS LEFT UPPER EXTREMITY: No evidence of left upper extremity DVT. Radiologist: Mansi Alexander MD Laboratory Results 11/15/16 01:05 Red Blood Count 3.92, Mean Corpuscular Volume 87.0, Mean Corpuscular Hemoglobin 29.3, Mean Corpuscular Hemoglobin Concent 33.7, Mean Platelet Volume 9.0, Neutrophils (%) (Auto) 73.4, Lymphocytes (%) (Auto) 18.2, Monocytes (%) (Auto) 6.2, Eosinophils (%) (Auto) 1.7, Basophils (%) (Auto) 0.1, Neutrophils # (Auto) 8.37, Lymphocytes # (Auto) 2.08, Monocytes # (Auto) 0.71, Eosinophils # (Auto) 0.19, Basophils # (Auto) 0.01 11/15/16 01:05 Test 11/15/16 01:05 White Blood Count 11.41 K/uL (4.8-10.8) Red Blood Count 3.92 M/uL (4.2-5.4) Hemoglobin 11.5 g/dL (12.0-16.0) Hematocrit 34.1 % (37-47) Mean Corpuscular Volume 87.0 fL (80-100) Mean Corpuscular Hemoglobin 29.3 pg (25-34) Mean Corpuscular Hemoglobin Concent 33.7 g/dl (32-36) Platelet Count 310 K/uL (130-400) Mean Platelet Volume 9.0 fL (7.4-10.4) Neutrophils (%) (Auto) 73.4 % Lymphocytes (%) (Auto) 18.2 % Monocytes (%) (Auto) 6.2 % Eosinophils (%) (Auto) 1.7 % Basophils (%) (Auto) 0.1 % Neutrophils # (Auto) 8.37 K/uL (1.4-6.5) Lymphocytes # (Auto) 2.08 K/uL (1.2-3.4) Monocytes # (Auto) 0.71 K/uL (0.11-0.59) Eosinophils # (Auto) 0.19 K/uL (0-0.5) Basophils # (Auto) 0.01 K/uL (0-0.2) RDW Standard Deviation 44.2 fL (36.4-46.3) RDW Coefficient of Variation 14.0 % (11.5-14.5) Immature Granulocyte % (Auto) 0.4 % Immature Granulocyte # (Auto) 0.05 K/uL (0.00-0.02) Prothrombin Time 9.7 SECONDS (9.0-12.0) Prothromb Time International Ratio 0.9 (0.9-1.1) Activated Partial Thromboplast Time 28.7 SECONDS (21.0-31.0) Partial Thromboplastin Ratio 1.1 D-Dimer 1590 ug/L FEU (0-500) Anion Gap 9.0 mmol/L (3-11) Est Creatinine Clear Calc Drug Dose 188.4 ml/min Estimated GFR () > 150.0 Estimated GFR (Non- 132.5 BUN/Creatinine Ratio 31.2 (10-20) Calcium Level 8.5 mg/dl (8.5-10.1) Troponin I < 0.015 ng/ml (0-0.045) Medical Decision Differential diagnosis includes pulmonary embolism, pneumonia, musculoskeletal pain, anxiety, among others. The patient is a 31-year-old female who presents today complaining of with shortness of breath after a . Labs revealed mild leukocytosis, likely secondary to the patient's recent surgery. No concerning anemia. D-dimer is elevated. An ultrasound of the left upper arm was performed and showed no DVT. CT of the chest was performed due to the elevated d-dimer and showed no evidence of pulmonary embolism. The patient's pain may be related to anxiety or could be musculoskeletal. She was reassured regarding today's findings. She was encouraged to follow-up with her primary care provider for further evaluation. She will return here for worsening or new/concerning symptoms. Based on the patient's presentation and work up, I feel the patient is stable for outpatient treatment. The patient was educated to return to the emergency department for any worsening of their current condition or new/concerning symptoms. She will follow up with her PCP. Medication reconciliation: I attest that I have personally reviewed the patient 's current medication list. Blood pressure screening: Patient was found to have normal blood pressure on screening and does not require follow-up. Impression Primary Impression: Shortness of breath Departure Information Dispostion Home / Self-Care Condition GOOD Referrals Alex Cohen D.O. (PCP) Patient Instructions My [facility] Additional Instructions Follow-up with your primary care provider for further evaluation. Continue your inhaler at home as needed for asthma. For pain control, you can use the following [id number] medicines (if >12 yo): - Regular strength (325mg/tab) Tylenol (acetaminophen) 2 tabs every 4-6 hours as needed. Do not exceed 12 tablets in a 24 hour period. Avoid taking more than 4 grams (4000 mg) of Tylenol per day. This includes any other sources of acetaminophen you may take on a regular basis. - Regular strength (200 mg/tab) Advil (ibuprofen) 1-2 tabs every 4-6 hours as needed. Do not exceed a dose of 3200 mg per day. Return to the emergency department with any worsening or new/concerning symptoms.
[2016-11-15 03:50] VITALS: BP 127/80; PULSE 84; O2SAT 96
--- NOTE | 2016-11-15 06:27 | DIAGNOSTIC IMAGING REPORT ---
VENOUS DOPPLER LEFT ARM UPPER EXTREMITY VENOUS DOPPLER HISTORY: Pain. Edema. left arm pain COMPARISON STUDY: None. FINDINGS: The internal jugular vein is patent. There is normal flow within the subclavian vein. There is normal flow and compressibility within the left axillary, basilic, brachial, radial, ulnar, and visualized cephalic veins. IMPRESSION: No DVT within the upper extremity. Electronically signed by: Jian Resendiz M.D. 11/15/2016 6:25 AM Dictated Date/Time: 11/15/2016 6:23 AM
--- NOTE | 2016-11-15 06:35 | DIAGNOSTIC IMAGING REPORT ---
CHEST CTA for PULMONARY ARTERIES CT DOSE: 400.64 mGy.cm HISTORY: Chest pain dyspnea TECHNIQUE: Multiaxial CT images of the chest were performed following the intravenous administration of contrast to evaluate the pulmonary arteries. Maximal intensity projection images were also obtained. COMPARISON STUDY: None. FINDINGS: There is a normal caliber thoracic aorta with no evidence for dissection. There is no evidence for pulmonary embolus. No pleural effusions. No pneumothorax. The liver and spleen are unremarkable. No mediastinal or hilar lymphadenopathy. The central airways are patent. The lungs are clear. IMPRESSION: No evidence for pulmonary embolus. Electronically signed by: Jian Resendiz M.D. 11/15/2016 6:34 AM Dictated Date/Time: 11/15/2016 6:32 AM
--- NOTE | 2016-11-15 07:32 | DIAGNOSTIC IMAGING REPORT ---
SINGLE VIEW CHEST CLINICAL HISTORY: Dyspnea. FINDINGS: An AP, portable, upright chest radiograph is compared to study dated 10/01/2015. The cardiomediastinal silhouette is unremarkable. The lungs and pleural spaces are clear. No pneumothorax is seen. The bony thorax is grossly intact. IMPRESSION: No active disease in the chest. Electronically signed by: Nikolay Tsai M.D. 11/15/2016 7:31 AM Dictated Date/Time: 11/15/2016 7:30 AM
== END 2016-11-15 03:51 | disposition home or self-care (01) ==
LOC: C.EDB 00:39
DX: R06.02 Shortness of breath (principal); J45.909 Unspecified asthma, uncomplicated; F41.1 Generalized anxiety disorder; F32.9 Major depressive disorder, single episode, unspecified; Z79.899 Other long term (current) drug therapy; Z91.010 Allergy to peanuts; Z91.09 Other allergy status, other than to drugs and biological substances; Z80.9 Family history of malignant neoplasm, unspecified; Z83.3 Family history of diabetes mellitus; Z82.49 Family history of ischemic heart disease and other diseases of the circulatory system

== ENCOUNTER 2016-11-30 10:03 | Emergency (ER) | payer OTHER ==
[~2016-11-30] VITALS: Ht 160 cm; Wt 88.1 kg
[~2016-11-30 10:03] MED LIST changes: +IBUP-1427 PO; -MTR600X PO; -RANI150T3 PO
[2016-11-30 10:08] VITALS: TEMP 36.8
[2016-11-30] MEDS ORDERED: ALBUT/IPRATROP 3MG/0.5MG NEB 3 ML VIAL INH STA ×2 (11:45→12:12)
[2016-11-30 11:57] LABS: BASO % 0.4 %; BASO ABS # 0.03 K/uL (0-0.2); COMPLETE YES; HEMATOCRIT 41.2 % (37-47); IG% 0.1 %; LYMPH % 25.1 %; LYMPH ABS # 1.88 K/uL (1.2-3.4); MEAN CELL VOLUME 89.4 fL (80-100); MEAN CORPUSCULAR HEMOGLOBIN 29.1 pg (25-34); MEAN CORPUSCULAR HGB CONC 32.5 g/dl (32-36); MEAN PLATELET VOLUME 9.3 fL (7.4-10.4); MONO % 6.3 %; NEUT % 66.1 %; PLATELET COUNT 393 K/uL (130-400); RED BLOOD COUNT 4.61 M/uL (4.2-5.4); WHITE BLOOD COUNT 7.49 K/uL (4.8-10.8)
[2016-11-30 12:00] VITALS: Ht 160 cm; Wt 88.1 kg
[2016-11-30 12:02] VITALS: O2SAT 97
[2016-11-30 12:10] LABS: ALT/SGPT 40 U/L (12-78); AST/SGOT 20 U/L (15-37); BLOOD UREA NITROGEN 15 mg/dl (7-18); CARBON DIOXIDE 28 mmol/L (21-32); CHLORIDE 109 mmol/L (98-107); CREATININE 0.67 mg/dl (0.60-1.20); GLUCOSE 92 mg/dl (70-99); POTASSIUM 3.9 mmol/L (3.5-5.1); SODIUM 142 mmol/L (136-145)
--- NOTE | 2016-11-30 12:10 | EMERGENCY ROOM VISIT NOTE ---
History Report prepared by Casie: Khushboo Rockwell Under the Supervision of: Dr. Carlos Abebe M.D. First contact with patient: 11:02 Chief Complaint: SHORTNESS OF BREATH Stated Complaint: SOB, TENDERNESS BY INCISION Nursing Triage Summary: pt is 3 weeks post op c section today she reports increasing shortness of breath she also reports increasing redness and inflammation per her to her C Section She has been having her monitor the site as she herself cannot see it she is smiling and in no distress at room at this time currently feeding her History of Present Illness The patient is a 31 year old female who presents to the Emergency Room with complaints of worsening shortness of breath that started yesterday. The patient states that it feels like she "can't get enough air with deep breathing." The patient states that she experienced shortness of breath yesterday for 4 hours after going to the grocery store. The patient has asthma and used her rescue inhaler without any relief of her symptoms. She denies fevers, chills, and chest pain. She states that she had an appointment with her PCP but they told her to come into the ED instead. The patient is also experiencing abdominal tenderness surrounding the incision from her section which started 2 days ago. She also states that pus is coming out of the incision and it is more erythematous. The patient states that Tylenol relieves her pain. The patient had a section 3 weeks ago. She is experiencing vaginal bleeding but she states that it is normal and improving. The patient denies abnormal vaginal discharge. The patient denies any history of blood clots as well as any recent long trips. She is not on control. The patient has a history of anxiety. Source of History: patient Onset: yesterday Position: chest Quality: other (shortness of breath) Timing: worsening Associated Symptoms: + abdominal pain (surrounding section incision ), No fevers, No chills, No chest pain Note: drainage from abdominal incision, erythema surrounding abdominal incision. no abnormal vaginal discharge Review of Systems See HPI for pertinent positives & negatives. A total of 10 systems reviewed and were otherwise negative. Past Medical & Surgical Medical Problems: (1) Asthma (2) Asthma (3) Chest pain (4) Depression (5) Diarrhea (6) Dysfunctional uterine bleeding (7) Elevated blood pressure affecting in third trimester, antepartum (8) ANA (generalized anxiety disorder) (9) Left leg numbness (10) Left leg numbness (11) Left leg numbness (12) Post term over 40 weeks (13) Proteinuria affecting in third trimester (14) Supervision of normal intrauterine in primigravida Family History Cancer Diabetes mellitus Hypertension Social History Smoking Status: Never Smoker Alcohol Use: none Drug Use: none Marital Status: Housing Status: lives with significant other Occupation Status: [employer] student Current/Historical Medications Scheduled Budesonide/Formoterol Fumarate (Symbicort 160/4.5 Inhaler), 2 PUFF INH BID Cephalexin Monohydrate (Keflex), 500 MG PO QID Fluoxetine HCl (Fluoxetine HCl), 60 MG PO DAILY Fluticasone Propionate (Nasal) (Flonase Allergy Relief), 2 SPRAYS NA HS Loratadine (Claritin), 10 MG PO DAILY Multivit/Min/Iron/Fol Ac/Pren ( Vitamin), 1 TAB PO DAILY Scheduled PRN Albuterol Hfa (Ventolin Hfa), 2-4 PUFFS INH Q6H PRN for Shortness of Breath Ibuprofen Tab (Motrin), 600 MG PO Q4H PRN for Pain Allergies Coded Allergies: Animal Dander (Verified Allergy, Intermediate, itchy watery eyes, 11/30/16) Peanut (Verified Allergy, Mild, SHORTNESS OF BREATH, 11/30/16) Pt reports that she continues to eat peanut butter Dust (Verified Allergy, Unknown, SHORTNESS OF BREATH, 11/30/16) POLLEN (Verified Allergy, Unknown, SHORTNESS OF BREATH, 11/30/16) Physical Exam Vital Signs Date Time Temp Pulse Resp B/P (MAP) Pulse Ox O2 Delivery O2 Flow Rate FiO2 11/30/16 14:29 85 16 125/72 100 Room Air 11/30/16 13:51 68 14 99 Room Air 11/30/16 13:49 75 11/30/16 12:29 72 16 137/72 98 Room Air 11/30/16 12:02 97 Room Air 11/30/16 12:02 97 Room Air 11/30/16 10:08 36.8 76 22 109/66 97 Room Air Physical Exam GENERAL: Patient is a healthy-appearing well-nourished female HEAD: Normocephalic atraumatic EYES: Ocular movements intact pupils equal and react to light OROPHARYNX mucous membranes are moist no exudates present no erythema or edema present NECK: Supple no nuchal rigidity CHEST: Good equal expansion LUNGS: Clear and equal to auscultation CARDIAC: Normal S1 and S2 ABDOMEN: Soft nontender no guarding pus leaking from surgical wound BACK: No CVA tenderness EXTREMITIES: No pain upon palpation normal muscle strength in all groups no clubbing cyanosis or edema NEURO: Patient is following commands and answering questions appropriately. Alert and oriented x3 Cranial Nerves 2-12 grossly intact Medical Decision & Procedures ER Provider Diagnostic Interpretation: Radiology results as stated below per my review and radiologist interpretation: VENOUS DOPPLER LWR EXT BILA FINDINGS: Right: Common femoral vein: Patent. Femoral vein: Patent. Greater saphenous vein: Patent. Popliteal vein: Patent. Calf veins: Patent. Left: Common femoral vein: Patent. Femoral vein: Patent. Greater saphenous vein: Patent. Popliteal vein: Patent. Calf veins: Patent. Other: None. IMPRESSION: No evidence of deep venous thrombosis bilateral lower extremities. Electronically signed by: Renato Swanson M.D. 11/30/2016 12:58 PM Dictated Date/Time: 11/30/2016 12:57 PM (CHEST FOR PE) ANGIO WITH FINDINGS: CTA: There is adequate opacification of the pulmonary arteries to the level of the subsegmental branches without convincing evidence of acute pulmonary embolism. The thoracic aorta is normal in course and caliber with incidental note made of the left vertebral artery emanating directly from the arch. Heart size is normal. CT CHEST: There is mild heterogeneity of the thyroid without dominant nodule identified. No pathologic adenopathy by CT size criteria. There is no pneumothorax or pleural effusion. There is minimal dependent atelectasis. 5 mm noncalcified pulmonary nodule is seen within the superior segment of the left lower lobe. Central airways are patent. Upper abdomen is unremarkable. Bones are intact. No significant degenerative changes. IMPRESSION: 1. No acute cardiopulmonary process, specifically no acute aortic pathology or evidence of pulmonary thromboembolic disease. 2. 5 mm noncalcified pulmonary nodule of the superior segment left lower lobe is statistically benign in a patient of this age group. 3. Mild thyroid heterogeneity without focal nodule identified. Please refer to below summary of Fleischner criteria recommendations for follow-up of incidental CT nodules (Louisa Webb, Guidelines for management of small pulmonary nodules detected on CT scans: A statement from the Fleischner Society, Radiology 237: [phone].) SOLID NODULES Solitary nodule size: <6 mm * Low risk patients: no follow-up needed * high risk patients: optional CT at 12 months Note: newly detected indeterminate nodule in persons 35 years of age or older. * Low risk patients: minimal or absent history of smoking and/or other known risk factors * high risk patients: history of smoking or of other known risk factors (e.g. first degree relative with lung cancer, or exposure to asbestos, radon, uranium) * if a nodule up to 8 mm is partly solid or is ground glass further follow-up is required after 24 months to exclude possible slow growing adenocarcinoma (JUAN) The above report was generated using voice recognition software. It may contain grammatical, syntax or spelling errors. Electronically signed by: Jimmy Prince M.D. 11/30/2016 1:52 PM Dictated Date/Time: 11/30/2016 1:[address] OF THE ABDOMEN AND PELVIS WITH CONTRAST FINDINGS: The chest CT will be reported separately. The liver, spleen, adrenal glands, kidneys and pancreas are normal. There is no peripancreatic or pericholecystic infiltration. There is no hydronephrosis. No pneumatosis, free air or portal venous gas is present. The caliber and wall thickness of small and large bowel are normal. The appendix is normal. There is mild infiltration and trace fluid within the subcutaneous tissues of the lower abdomen consistent with a recent section. Hypodensity within the anterior wall of the lower uterine segment reflects expected findings following recent section. There is no drainable fluid collection. There is slight separation of the rectus abdominis muscles. This is not unexpected. No significant skeletal abnormalities are present. IMPRESSION: 1. Expected findings following recent section including mild infiltration and trace fluid within the operative bed, as described above. Slight separation of the rectus abdominal muscles is not unexpected. 2. No bowel obstruction. 3. No bowel wall thickening. Normal appendix. Electronically signed by: Pelon Aragon M.D. 11/30/2016 1:57 PM Dictated Date/Time: 11/30/2016 1:46 PM Laboratory Results 11/30/16 11:40 Red Blood Count 4.61, Mean Corpuscular Volume 89.4, Mean Corpuscular Hemoglobin 29.1, Mean Corpuscular Hemoglobin Concent 32.5, Mean Platelet Volume 9.3, Neutrophils (%) (Auto) 66.1, Lymphocytes (%) (Auto) 25.1, Monocytes (%) (Auto) 6.3, Eosinophils (%) (Auto) 2.0, Basophils (%) (Auto) 0.4, Neutrophils # (Auto) 4.95, Lymphocytes # (Auto) 1.88, Monocytes # (Auto) 0.47, Eosinophils # (Auto) 0.15, Basophils # (Auto) 0.03 11/30/16 11:40 Test 11/30/16 11:40 White Blood Count 7.49 K/uL (4.8-10.8) Red Blood Count 4.61 M/uL (4.2-5.4) Hemoglobin 13.4 g/dL (12.0-16.0) Hematocrit 41.2 % (37-47) Mean Corpuscular Volume 89.4 fL (80-100) Mean Corpuscular Hemoglobin 29.1 pg (25-34) Mean Corpuscular Hemoglobin Concent 32.5 g/dl (32-36) Platelet Count 393 K/uL (130-400) Mean Platelet Volume 9.3 fL (7.4-10.4) Neutrophils (%) (Auto) 66.1 % Lymphocytes (%) (Auto) 25.1 % Monocytes (%) (Auto) 6.3 % Eosinophils (%) (Auto) 2.0 % Basophils (%) (Auto) 0.4 % Neutrophils # (Auto) 4.95 K/uL (1.4-6.5) Lymphocytes # (Auto) 1.88 K/uL (1.2-3.4) Monocytes # (Auto) 0.47 K/uL (0.11-0.59) Eosinophils # (Auto) 0.15 K/uL (0-0.5) Basophils # (Auto) 0.03 K/uL (0-0.2) RDW Standard Deviation 45.7 fL (36.4-46.3) RDW Coefficient of Variation 13.9 % (11.5-14.5) Immature Granulocyte % (Auto) 0.1 % Immature Granulocyte # (Auto) 0.01 K/uL (0.00-0.02) D-Dimer 600 ug/L FEU (0-500) Anion Gap 5.0 mmol/L (3-11) Est Creatinine Clear Calc Drug Dose 129.2 ml/min Estimated GFR () 136.7 Estimated GFR (Non- 118.0 BUN/Creatinine Ratio 23.0 (10-20) Calcium Level 9.0 mg/dl (8.5-10.1) Total Bilirubin 0.3 mg/dl (0.2-1) Aspartate Amino Transf (AST/SGOT) 20 U/L (15-37) Alanine Aminotransferase (ALT/SGPT) 40 U/L (12-78) Alkaline Phosphatase 107 U/L (45-117) Total Creatine Kinase 49 U/L (26-192) Creatine Kinase MB < 0.5 ng/ml (0.5-3.6) Creatine Kinase MB Ratio (0-3.0) Troponin I < 0.015 ng/ml (0-0.045) Pro-B-Type Natriuretic Peptide 36 pg/ml (0-450) Total Protein 7.2 gm/dl (6.4-8.2) Albumin 3.4 gm/dl (3.4-5.0) Globulin 3.8 gm/dl (2.5-4.0) Albumin/Globulin Ratio 0.9 (0.9-2) Labs reviewed by ED physician. Medications Administered Medications (Trade) Dose Ordered Sig/Jose Antonio Route Start Time Stop Time Status Last Admin Dose Admin Albuterol/ Ipratropium (Duoneb) 3 ml NOW STAT INH 11/30/16 11:45 11/30/16 11:47 DC 11/30/16 11:45 3 ML Sodium Chloride 1,000 ml @ 999 mls/hr Q1H1M STAT IV 11/30/16 12:12 11/30/16 13:12 DC 11/30/16 12:12 999 MLS/HR Albuterol/ Ipratropium (Duoneb) 12 ml ONE STAT INH 11/30/16 12:12 11/30/16 12:14 DC 11/30/16 12:12 12 ML Ceftriaxone Sodium (Rocephin Inj) 1 gm NOW STAT IV 11/30/16 14:10 11/30/16 14:11 DC 11/30/16 14:10 1 GM ECG Indication: SOB/dyspnea Rate (beats per minute): 74 Rhythm: normal sinus Findings: no acute ischemic change, no ectopy ED Course 1134: Past medical records reviewed. The patient was evaluated in room C9. A complete history and physical examination was performed. 1145: Ordered DuoNeb 3 ml INH 1212: Ordered DuoNeb 12 ml INH, Sodium Chloride 1000 ml @ 999 mls/hr IV 1405: I discussed the patient's case with Dr. Posadas - OB-RETAIL LINK ANALYST. She is in agreement with the treatment plan and will follow-up with the patient in the office. 1408: Upon reexamination the patient is doing well. I discussed results and treatment plan with the patient. She verbalizes agreement and understanding. The patient is ready for discharge. 1410: Ordered Rocephin 1 gm IV Medical Decision Differential diagnosis: Etiologies such as infections, reactive airway disease, pneumonia, pneumothorax , COPD, CHF, cardiac ischemia, pulmonary embolism, musculoskeletal, gastrointestinal, as well as others were entertained. This is a 31-year-old female who recently had a performed that presents emergency department complaining of pus leaking from the incision. A culture of this was taken and sent to the lab. The patient has multiple complaints and is complaining of shortness of breath. I will note that she recently had a CAT scan of her chest performed. She does have an elevation in her d-dimer so she was first sent for ultrasound of her lower legs. This did not show any evidence of blood clots so the patient was sent for CAT scan of the chest as well as the abdomen and pelvis. No evidence of abscess formation. The patient also has no evidence of PE. Based on these findings I felt that the patient can be safely discharged home. She was given an hour-long breathing treatment. I did discuss the case with Dr. Posadas who asked that the patient be started on Keflex. The patient was given IV dose of Rocephin here in the emergency department and was in agreement with the treatment plan. Medication Reconcilliation Current Medication List: was personally reviewed by me Blood Pressure Screening Patient's blood pressure: Normal blood pressure Consults Time Called: 1403 Consulting Physician: Dr. Posadas - OB-RETAIL LINK ANALYST Returned Call: 1405 I discussed the patient's case with Dr. Posadas - OB-RETAIL LINK ANALYST. She is in agreement with the treatment plan and will follow-up with the patient in the office. Impression Primary Impression: Skin infection Scribe Attestation The scribe's documentation has been prepared under my direction and personally reviewed by me in its entirety. I confirm that the note above accurately reflects all work, treatment, procedures, and medical decision making performed by me. Departure Information Dispostion Home / Self-Care Prescriptions Cephalexin Monohydrate (KEFLEX) 500 Mg Cap 500 MG PO QID for 10 Days, #40 CAP Prov: Carlos Abebe MD 11/30/16 Referrals Alex Cohen D.O. (PCP) Forms HOME CARE DOCUMENTATION FORM, IMPORTANT VISIT INFORMATION Patient Instructions My [facility] Additional Instructions Follow up with DR Baker's office You have been examined and treated today on an emergency basis only. This is not a substitute for, or an effort to provide, complete comprehensive medical care. It is impossible to recognize and treat all injuries or illnesses in a single emergency department visit. It is therefore important that you follow up closely with Dr Cohen. Call as soon as possible for an appointment. Thank you for your time and consideration. I look forward to speaking with you again soon. Please don't hesitate to call us if you have any questions.
[2016-11-30] MEDS ORDERED: SODIUM CHLORIDE 0.9% 1000ML 1,000 ML IV STA (12:12)
[2016-11-30 12:15] LABS: ALB/GLOB RATIO 0.9 (0.9-2); ALKALINE PHOSPHATASE 107 U/L (45-117)
[2016-11-30] MEDS ORDERED: OPTIRAY 320 IV PRN (12:30)
--- NOTE | 2016-11-30 13:00 | DIAGNOSTIC IMAGING REPORT ---
VENOUS DOPPLER LWR EXT BILA CLINICAL HISTORY: 31 years-old Female presenting with Pt c/o b/l leg swelling. TECHNIQUE: Real-time grayscale and color and spectral Doppler ultrasound imaging of the veins of the bilateral lower extremities was performed. Compression and augmentation were also utilized. COMPARISON: None. FINDINGS: Right: Common femoral vein: Patent. Femoral vein: Patent. Greater saphenous vein: Patent. Popliteal vein: Patent. Calf veins: Patent. Left: Common femoral vein: Patent. Femoral vein: Patent. Greater saphenous vein: Patent. Popliteal vein: Patent. Calf veins: Patent. Other: None. IMPRESSION: No evidence of deep venous thrombosis bilateral lower extremities. Electronically signed by: Renato Swanson M.D. 11/30/2016 12:58 PM Dictated Date/Time: 11/30/2016 12:57 PM
[2016-11-30 13:51] VITALS: PULSE 68; O2SAT 99
--- NOTE | 2016-11-30 13:53 | DIAGNOSTIC IMAGING REPORT ---
(CHEST FOR PE) ANGIO WITH CT DOSE: 1218.22 mGy.cm HISTORY: 31 years-old Female presents with acute shortness of breath and abdominal pain TECHNIQUE: Multiple CTA images of the chest were obtained after the intravenous administration of 125 ml Optiray 320. Coronal and sagittal MIPS were obtained from the axial data set and were submitted for review. A dose lowering technique was utilized adhering to the principles of ALARA. COMPARISON: CTA of the chest 11/15/2016. FINDINGS: CTA: There is adequate opacification of the pulmonary arteries to the level of the subsegmental branches without convincing evidence of acute pulmonary embolism. The thoracic aorta is normal in course and caliber with incidental note made of the left vertebral artery emanating directly from the arch. Heart size is normal. CT CHEST: There is mild heterogeneity of the thyroid without dominant nodule identified. No pathologic adenopathy by CT size criteria. There is no pneumothorax or pleural effusion. There is minimal dependent atelectasis. 5 mm noncalcified pulmonary nodule is seen within the superior segment of the left lower lobe. Central airways are patent. Upper abdomen is unremarkable. Bones are intact. No significant degenerative changes. IMPRESSION: 1. No acute cardiopulmonary process, specifically no acute aortic pathology or evidence of pulmonary thromboembolic disease. 2. 5 mm noncalcified pulmonary nodule of the superior segment left lower lobe is statistically benign in a patient of this age group. 3. Mild thyroid heterogeneity without focal nodule identified. Please refer to below summary of Fleischner criteria recommendations for follow-up of incidental CT nodules (Louisa Webb, Guidelines for management of small pulmonary nodules detected on CT scans: A statement from the Fleischner Society, Radiology 237: [phone].) SOLID NODULES Solitary nodule size: <6 mm * Low risk patients: no follow-up needed * high risk patients: optional CT at 12 months Note: newly detected indeterminate nodule in persons 35 years of age or older. * Low risk patients: minimal or absent history of smoking and/or other known risk factors * high risk patients: history of smoking or of other known risk factors (e.g. first degree relative with lung cancer, or exposure to asbestos, radon, uranium) * if a nodule up to 8 mm is partly solid or is ground glass further follow-up is required after 24 months to exclude possible slow growing adenocarcinoma (JUAN) The above report was generated using voice recognition software. It may contain grammatical, syntax or spelling errors. Electronically signed by: Jimmy Prince M.D. 11/30/2016 1:52 PM Dictated Date/Time: 11/30/2016 1:46 PM
--- NOTE | 2016-11-30 13:58 | DIAGNOSTIC IMAGING REPORT ---
CT OF THE ABDOMEN AND PELVIS WITH CONTRAST CLINICAL HISTORY: Abdominal pain. Status post section on November 10, 2016. COMPARISON STUDY: Abdominal series October 01, 2015. TECHNIQUE: Following IV administration of 92 mL of Optiray-320, axial images of the abdomen and pelvis were obtained from the lung bases to the proximal femurs. Images were reviewed in the axial, sagittal, and coronal planes. IV contrast was administered without complication. A dose lowering technique was utilized adhering to the principles of ALARA. FINDINGS: The chest CT will be reported separately. The liver, spleen, adrenal glands, kidneys and pancreas are normal. There is no peripancreatic or pericholecystic infiltration. There is no hydronephrosis. No pneumatosis, free air or portal venous gas is present. The caliber and wall thickness of small and large bowel are normal. The appendix is normal. There is mild infiltration and trace fluid within the subcutaneous tissues of the lower abdomen consistent with a recent section. Hypodensity within the anterior wall of the lower uterine segment reflects expected findings following recent section. There is no drainable fluid collection. There is slight separation of the rectus abdominis muscles. This is not unexpected. No significant skeletal abnormalities are present. IMPRESSION: 1. Expected findings following recent section including mild infiltration and trace fluid within the operative bed, as described above. Slight separation of the rectus abdominal muscles is not unexpected. 2. No bowel obstruction. 3. No bowel wall thickening. Normal appendix. Electronically signed by: Pelon Aragon M.D. 11/30/2016 1:57 PM Dictated Date/Time: 11/30/2016 1:46 PM
[2016-11-30] MEDS ORDERED: CEFTRIAXONE SOD INJ 1 GM ADDVIAL IV STA (14:10)
[2016-11-30] MEDS ORDERED: CEPH500C2 PO (14:13)
[2016-11-30 15:59] VITALS: BP 132/76; PULSE 62; O2SAT 100
--- NOTE | 2016-12-21 18:54 | Pharmacy Progress Note ---
ED Pharmacist Culture FollowUp Date of Service: Dec 21, 2016. Patient's surface wound cx ( site) results were forwarded to me today: the cx is growing 2 organisms: morganella morganii and kelbsiella pneumoniae. She had been given a course of Keflex which she did complete. She has f/u with Dr Meneses this week after completing the course of abx because she felt the incision was still red and there was increasing drainage. Per the patient, Dr Meneses did not feel the incision site appeared infected and he did not feel that additional abx therapy was warranted. The patient stated that she would be f/u next week with Dr Baker for her post- f/u. She will continue to monitor the wound for redness and drainage as well as monitor for fever. I advised the patient that one of the two organisms in the culture may not have been susceptible to the Keflex she was prescribed (morganella morganii). If she notices worsening of the appearance of the incision or develops fever should should f/u sooner and could return to the ER for eval. I advised that she notify her provider next week that the results of the site cx could be forwarded to the office for review if there is concern for infection.
== END 2016-11-30 16:08 | disposition home or self-care (01) ==
LOC: C.EDB 10:06 → C.EDC 16:08
DX: L08.9 Local infection of the skin and subcutaneous tissue, unspecified (principal); R06.02 Shortness of breath; J45.909 Unspecified asthma, uncomplicated; R10.9 Unspecified abdominal pain; F32.9 Major depressive disorder, single episode, unspecified; F41.1 Generalized anxiety disorder; Z83.3 Family history of diabetes mellitus; Z82.49 Family history of ischemic heart disease and other diseases of the circulatory system

== ENCOUNTER 2017-12-21 14:05 | Emergency (ER) | payer OTHER ==
[~2017-12-21] VITALS: Ht 160 cm; Wt 97.4 kg
[~2017-12-21 14:05] MED LIST changes: +ACET-1256 PO; +ACET300T3 PO; +CIPR-255 PO; -FLUO20CA36 PO; +FLUO20CA37 PO; -FLUT0.15; +FLUT0.15 NAE; +HYDR-5688 PO; +IBUP-1050 PO; -IBUP-1427 PO; +IPRA-64 INH; +ONDA4TAB10 SL; -OXYC-57 PO; -PRENTAB26 PO; +TRIA1SPR4 NAE
[2017-12-21 14:12] VITALS: TEMP 37; Ht 160 cm; Wt 97.4 kg
[2017-12-21] MEDS ORDERED: PROPARACAINE HCL 0.5% OP SOLN 15 ML BTL OP STA (14:20)
[2017-12-21] MEDS ORDERED: ERYOPO (14:21)
[2017-12-21] MEDS ORDERED: HYDROCODONE/ACETAMIN 5/325MG TAB PO STA (14:39)
[2017-12-21] MEDS ORDERED: CIPROFLOXACIN HCL 0.3% OP SOLN 2.5 ML BTL OPR ONE (14:45)
[2017-12-21] MEDS ORDERED: HYDR-5688 PO (14:54)
[2017-12-21] MEDS ORDERED: CIPR0.3S4 OPR (14:59)
--- NOTE | 2017-12-21 15:01 | EMERGENCY ROOM VISIT NOTE ---
ED Visit Note First contact with patient: 14:18 CHIEF COMPLAINT: Eye pain HISTORY OF PRESENT ILLNESS: This 32-year-old female patient presents to the emergency department by private vehicle with her complaining of pain in the right eye after injury last night. She states she was playing with her daughter got scratched on the right eye by her daughter's fingernail. She states she was seen at the emergency department last night in [place] while traveling back to [place], states they told her she had a corneal abrasion , put her on erythromycin ointment and told her to take Tylenol and ibuprofen for the pain. She states that she has been using the erythromycin every 4 hours while awake and has been taking Tylenol and Motrin without relief, last dose of Motrin was 9 AM last dose of Tylenol was 11 AM. She also has been wearing an eye patch over the eye since last night. There has been a constant pain and irritation, redness and tearing in the eye. There is a mild blurring of vision at times and light bothers the eye. The vision has not been decreased over all. The patient does not wear contacts, but does wear glasses. The patient rates the pain as stinging, "feels like a piece of glass in my eye " and 9/10. The patient has not had previous injuries to this eye. Tetanus shot is up to date. REVIEW OF SYSTEMS: A 6 system review of systems was completed with positives and pertinent negatives listed in the HPI. ALLERGIES: Reviewed in chart, see below. MEDICATIONS: Reviewed in chart, see below PMH: Reviewed in chart, see problem list below. SOCIAL HISTORY: Lives at home. She denies tobacco use. PHYSICAL EXAM: Vital Signs: Reviewed Nurse's notes, vital signs stable. Visual acuity unable to be assessed by nursing. GENERAL: Pleasant and cooperative, in no acute distress, but who is uncomfortable from the eye problem. Well- developed well-nourished. EYES: The pupils are equal round and reactive to light and accommodation. EOMs are full and without tenderness. There is discharge of clear tears from the right eye which is injected. There is no foreign body visible under the eyelid even after lid eversion. Funduscopic exam reveals no hemorrhages, papilledema, or other abnormalities. No foreign body was seen embedded in the cornea under slit lamp exam. The cornea was clear and no hyphema was seen. Fluorescein uptake was observed with ultraviolet light significant for a large corneal abrasion overlying approximately 50-60% of the iris. No evidence for corneal ulcer. EMERGENCY DEPARTMENT COURSE: I examined the patient. Nursing staff unable to get visual acuity due to patient discomfort. Proparacaine 2 drops were placed in the patient's right eye. Patient was then able to see more normally, and was able to read wall sign with each eye with correction. A slit lamp exam was performed as above. Ciprofloxacin ophthalmic two drops was placed in the patient's right eye. Due to the extent of the abrasion, and poor pain management with [id number] medications, I did provide the patient with a small prescription of Glenwood. She was given her first dose in the ED and was educated regarding this medication. The patient was instructed not to wear the eye patch any further. She was educated regarding continuing management at home , use of the eyedrops, encouraged to follow closely with her eye doctor, and given strict return precautions if her symptoms worsen in any way, she verbalized understanding. The patient was discharged home in good condition and ambulatory. (Margot Mota CRNP) First contact with patient: 14:18 (Parker Baker M.D.) Problem List Medical Problems: (1) Asthma Status: Chronic (2) Asthma Status: Resolved (3) Chest pain Status: Resolved (4) Depression Status: Chronic (5) Diarrhea Status: Resolved (6) Dysfunctional uterine bleeding Status: Resolved (7) ANA (generalized anxiety disorder) Status: Chronic (8) Left leg numbness Status: Resolved (9) Left leg numbness Status: Resolved (10) Left leg numbness Status: Resolved (11) Proteinuria affecting in third trimester Status: Resolved (Parker Baker M.D.) Current/Historical Medications Scheduled Budesonide/Formoterol Fumarate (Symbicort 160/4.5 Inhaler), 2 PUFFS INH BID Ciprofloxacin Ophth Soln (Ciprofloxacin Ophth Soln), 2 DROP OPR Q4H Fluoxetine Hcl (Prozac), 60 MG PO DAILY Fluticasone Propionate (Nasal) (Flonase Allergy Relief), 2 SPRAYS GLADIS HS Loratadine (Claritin), 10 MG PO DAILY Ondasetron Odt (Zofran Odt), 4 MG SL TID Triamcinolone Acetonide (Nasal (Nasacort Allergy 24Hr), 2 SPRAYS GLADIS HS Scheduled PRN Acetaminophen (Tylenol), 1,000 MG PO Q6H PRN for Pain or Fever Albuterol Hfa (Ventolin Hfa), 2 PUFFS INH Q6H PRN for Shortness of Breath Hydrocodone/Acetaminophen 5MG/325MG (Glenwood 5MG/325MG), 1 TABLET PO Q4H PRN for svr Ibuprofen (Advil), 400 MG PO Q6H PRN for Pain or Fever Ipratropium-Albuterol (Duoneb), 1 TREATMENT INH UD PRN for SOB/Wheezing Miscellaneous Medications Erythromycin Opth (Erythromycin Opth) Allergies Coded Allergies: Animal Dander (Verified Allergy, Intermediate, itchy watery eyes, 12/21/17) Peanut (Verified Allergy, Mild, SHORTNESS OF BREATH, 12/21/17) Pt reports that she continues to eat peanut butter Dust (Verified Allergy, Unknown, SHORTNESS OF BREATH, 12/21/17) POLLEN (Verified Allergy, Unknown, SHORTNESS OF BREATH, 12/21/17) Vital Signs Date Time Temp Pulse Resp B/P (MAP) Pulse Ox O2 Delivery O2 Flow Rate FiO2 12/21/17 15:59 74 20 136/95 97 12/21/17 14:12 37.0 94 18 131/75 96 Room Air (Parker Baker M.D.) Medications Administered Medications (Trade) Dose Ordered Sig/Jose Antonio Route Start Time Stop Time Status Last Admin Dose Admin Acetaminophen/ Hydrocodone Bitart (Glenwood 5/325 Tab) 1 tab NOW STAT PO 12/21/17 14:39 12/21/17 14:44 DC 12/21/17 15:58 1 TAB Ciprofloxacin HCl (Ciprofloxacin 0.3% Op Soln) 2 drops NOW ONCE OPR 12/21/17 14:45 12/21/17 14:46 DC 12/21/17 15:59 2 DROPS (Parker Baker M.D.) Departure Information Impression Primary Impression: Right corneal abrasion Dispostion Home / Self-Care Condition GOOD Prescriptions Ciprofloxacin Ophth Soln (CIPROFLOXACIN OPHTH SOLN) 0.3 % Debra 2 DROP OPR Q4H for 5 Days, #1 BTL Prov: Margot Mota CRNP 12/21/17 Hydrocodone/Acetaminophen 5MG/325MG (Glenwood 5MG/325MG) Tab 1 TABLET PO Q4H Y for svr, #12 TAB For Initial Treatment Prov: Margot Mota CRNP 12/21/17 Referrals Brian De Anda M.D. (PCP) Patient Instructions [facility] Additional Instructions DISCHARGE INSTRUCTIONS AND TREATMENT: You have been evaluated and treated in the emergency department today for your right eye corneal abrasion. Use Ciprofloxacin 2 drops in the right eye every 2 hours while awake for 2 days ; then 2 drops every 4 hours while awake for 5 days. Use Ibuprofen 600 mg or Tylenol 650 mg every 6 hours as needed for moderate pain. For best results, alternate between ibuprofen and Tylenol every 3-4 hours. Use Glenwood 1 tablet every four to six hours when pain breaks through the Ibuprofen or Tylenol. Glenwood is a narcotic, do not drive, operate machinery, or drink alcohol while you are taking this medication as it may make you drowsy. You may apply cool compress or wet washcloth over the right eye for comfort. Return to the Emergency Department or see an eye doctor in 24-48 hours for a recheck. Return to the Emergency Department for increasing pain, severe swelling of the eye, changes in vision, development of fevers/chills, or any other concerns. Work Instructions Return To Work: 2 days (Margot Mota CRNP) Problem Qualifiers Primary Impression: Right corneal abrasion Encounter type: subsequent encounter Qualified Codes: S05.01XD - Injury of conjunctiva and corneal abrasion without foreign body, right eye, subsequent encounter
[2017-12-21 15:59] VITALS: BP 136/95; PULSE 74; O2SAT 97
== END 2017-12-21 16:03 | disposition home or self-care (01) ==
LOC: C.EDB 14:06 → C.EDD 16:03
DX: S05.01XA Injury of conjunctiva and corneal abrasion without foreign body, right eye, initial encounter (principal); W50.0XXA Accidental hit or strike by another person, initial encounter; J45.909 Unspecified asthma, uncomplicated; F32.9 Major depressive disorder, single episode, unspecified; F41.1 Generalized anxiety disorder; Z79.51 Long term (current) use of inhaled steroids; Z91.048 Other nonmedicinal substance allergy status; Z91.010 Allergy to peanuts